=== PATIENT | male | born 1965 | race Caucasian/White ===

== ENCOUNTER 2019-10-02 09:50 | Day surgery (SDC) | payer OTHER ==
[~2019-10-02 09:50] MED LIST: ACETAMINOPHEN 1,000 MG/100 ML BTL IVPB ONE
[2019-10-02] MEDS ORDERED: MIDAZOLAM HCL 2MG/2ML VIAL IV ONE (09:51)
[2019-10-02] MEDS ORDERED: ONDANSETRON HCL IV 4 MG/2 ML VIAL IVP ONE (09:51)
[2019-10-02] MEDS ORDERED: SEVOFLURANE 250 ML INH ONE (09:51)
[2019-10-02] MEDS ORDERED: PROPOFOL 10 MG/ML VIAL IV ONE (09:51)
[2019-10-02] MEDS ORDERED: KETOROLAC 30 MG/ML VIAL IVP ONE (09:51)
[2019-10-02] MEDS ORDERED: FENTANYL CITRATE/PF (PACU) 50 MCG/ML VIAL IV ONE (09:51)
[2019-10-02] MEDS ORDERED: LIDOCAINE 2% MDV (20MG/ML) 20ML VIAL IV ONE (09:51)
[2019-10-02] MEDS ORDERED: RINGERS SOLUTION,LACTATED 1,000 ML IV ONE (10:25)
[2019-10-02] MEDS ORDERED: BUPIVACAINE 0.25% W/EPI MPF 30ML VIAL SQ ONE (12:01)
--- NOTE | 2019-10-03 10:02 | Operative Note ---
DATE OF SURGERY: 10/02/2019 SURGEON: Elbert Koehler D.O. PREOPERATIVE DIAGNOSIS: TORN MEDIAL MENISCUS OF THE RIGHT KNEE. POSTOPERATIVE DIAGNOSIS: 1. TORN MEDIAL MENISCUS OF THE RIGHT KNEE. 2. CHONDROMALACIA MEDIAL FEMORAL CONDYLE, TROCHLEA AND PATELLA RIGHT KNEE. OPERATION: 1. ARTHROSCOPIC PARTIAL MEDIAL MENISCECTOMY RIGHT KNEE. 2. ARTHROSCOPIC CHONDROPLASTY MEDIAL FEMORAL CONDYLE AND TROCHLEA RIGHT KNEE. DESCRIPTION: This 54-year-old male was taken to the Operating Room and placed in the supine position on the operating room table. General anesthetic was administrated and the right lower extremity was elevated, exsanguinated, and the tourniquet was inflated to 300 mmHg. Arthroscopic knee curtis was applied and the right knee was prepped with Hibiclens and draped in the usual sterile fashion. An inferolateral portal was established with a 4 mm arthroscope and initial evaluation of the joint demonstrated normal appearance of the suprapatellar pouch, however, there were very minimal Grade 2 changes just minor fraying of the medial facet of the patella and was probed and not unstable and not further disturbed. The trochlea, however, demonstrated some loose fragments of articular cartilage, but this was clearly Grade 3 changes and we attempted to stabilize the articular cartilage as much as possible. The medial compartment was entered and again Grade 3 changes of the medial femoral condyle were present. The largest area being approximately 2 cm x 1.5 cm in the center of the weight bearing surface of the medial femoral condyle. This was debrided to stable edges. The medial meniscus was probed and a tear of the posterior horn of the medial meniscus was present. The tear extended posteriorly towards the root, but the root was not torn. We resected unstable fragments from the posterior horn around to the body of the meniscus at about the 3:00 o'clock position. Utilizing the basket forces and rotating shaver, we resected unstable fragments of the meniscus and then re-probed it to confirm stability of the meniscus. The intercondylar notch was examined and found to be normal. The lateral compartment was entered and no articular cartilage or meniscal defects were identified in the lateral compartment. The wound was irrigated and suctioned and the portals infiltrated with 0.25% Marcaine with epinephrine, sterile dressing applied, tourniquet and knee curtis released and the patient was taken to the Recovery Room in satisfactory condition. 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 JOB NUMBER: [id number] MTDD
== END 2019-10-02 13:10 | disposition home or self-care (01) ==
LOC: SUR 09:50
PROVIDERS: ATTEND Orthopaedic Surgery
DX: S83.241A Other tear of medial meniscus, current injury, right knee, initial encounter (principal); M22.41 Chondromalacia patellae, right knee; E78.00 Pure hypercholesterolemia, unspecified; E11.9 Type 2 diabetes mellitus without complications; I10 Essential (primary) hypertension; K21.9 Gastro-esophageal reflux disease without esophagitis
CPT/HCPCS: J1885; J2405; J7120